=== PATIENT | female | born 1965 | race African-American/Black ===

== ENCOUNTER 2017-02-14 13:03 | Emergency (ER) | payer OTHER ==
[~2017-02-14] VITALS: Ht 162.6 cm; Wt 111.3 kg
[~2017-02-14 13:03] MED LIST: ASPIR 8181 M1 PO; CELEXA40 MG PO; COREG25 M1 PO; LASIX40 MG PO; LOSARTAN POTASS50 MG PO; MIRALAX17 GM PO; NORVASC5 MG PO; SPIRONOLACTONE25 MG PO; VITAMIN D50000 UNI4 PO
[2017-02-14 14:52] LABS: HEMATOCRIT 44.3 % (36.0-46.0); MCH 30.4 PG (29.0-34.0); MCHC 34.1 G/DL (30.0-36.0); MCV 89.1 FL (83-99); MEAN PLAT.VOLUME 9.8 uM^3 (9.5-12.4); PLATELET COUNT 173 K/uL (156-360); RBC DIS.WIDTH-CV 13.2 % (11.8-14.6); RED BLOOD COUNT 4.97 M/uL (3.80-5.20); WHITE BLOOD COUNT 4.7 K/uL (4.1-10.2)
[2017-02-14 15:00] LABS: CHLORIDE 105 mEq/L (99-109); POTASSIUM 4.5 mEq/L (3.7-5.4); SODIUM 140 mEq/L (136-147)
[2017-02-14 15:02] LABS: GLUCOSE 91 mg/dL (70-99)
[2017-02-14 15:03] LABS: ANION GAP 11 MEQ/L (2-14)
[2017-02-14 15:06] LABS: GFR ESTIMATE (CALCULATED) > 59 mL/min/
[2017-02-14 15:07] LABS: UREA NITROGEN (BUN) 21 mg/dL (9-23)
[2017-02-14 16:53] LABS: TROP-I INTERPRETATION NEGATIVE; TROPONIN-I < 0.01 ng/mL (0.0-0.30)
[2017-02-14 17:01] VITALS: BP 157/98
== END 2017-02-14 17:02 | disposition home or self-care (01) ==
LOC: EME 13:03
PROVIDERS: Physician Assistant
DX: R00.2 Palpitations (principal); R42 Dizziness and giddiness; R53.83 Other fatigue; R60.0 Localized edema; I10 Essential (primary) hypertension; Z85.3 Personal history of malignant neoplasm of breast; Z79.82 Long term (current) use of aspirin; Z87.891 Personal history of nicotine dependence
CPT/HCPCS: 71020; 80048; 84484; 85027; 93005; 99281; 99284